=== PATIENT | female | born 1955 | race Caucasian/White ===

== ENCOUNTER 2017-12-16 23:41 | Emergency (ER) | payer BC ==
[2017-12-17] MEDS ORDERED: Amoxicillin/Clavulanate TAB* 875 MG PO ONE (00:56)
[2017-12-17] MEDS ORDERED: Tetan/Diph/Pertus SYR(Tdap)* 0.5 ML SYR(BOOSTRIX) use SYR IM ONE (00:56)
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
[2017-12-17 01:51] VITALS: BP 138/74
== END 2017-12-17 01:50 | disposition home or self-care (01) ==
LOC: ED 23:41
DX: S51.859A Open bite of unspecified forearm, initial encounter (principal); M79.639 Pain in unspecified forearm; Z87.891 Personal history of nicotine dependence; W55.01XA Bitten by cat, initial encounter; Y92.9 Unspecified place or not applicable
CPT/HCPCS: 90471; 90715; 99283; A9270-GY